=== PATIENT | male | born 1980 | race Caucasian/White ===

== ENCOUNTER 2019-12-17 23:17 | Emergency (ER) | payer MEDICAID ==
[~2019-12-17] VITALS: Ht 182.9 cm; Wt 136.1 kg
--- NOTE | 2019-12-17 23:47 | NUR ---
PATIENT CAME TO ER BED 9 C/O NON-RADIATING LEFT SIDED CHEST PAIN THAT HAS BEEN ONGOING FOR 2 WEEKS. PATIENT EXPRESSES THAT IT WAS UNBEARABLE WHICH IS WHAT LED HIM TO COME TO THE ER. PATIENT STATES THAT HE WAS HAVING SOME HEADACHE AND HIGH BLOOD PRESSURE. PATIENT DOES NOT TAKE BLOOD PRESSURE MEDICATION. PATIENT IS A/OX4. NO SOB. BREATHING EVENLY AND UNLABORED ON ROOM AIR. CONNECTED TO CLINICAL OFFICE TECHNICIAN
[2019-12-17 23:59] LABS: BASOPHILS % (AUTO) 0.5 % (0.0-2.0); EOSINOPHILS % (AUTO) 2.5 % (0.0-6.0); HEMATOCRIT 46 % (39-51); HEMOGLOBIN 16.1 g/dL (13.5-17.5); LYMPHOCYTES # (AUTO) 2.6 /CMM (0.8-4.8); LYMPHOCYTES % (AUTO) 29.2 % (20.0-44.0); MEAN CORPUSCULAR HGB CONC 35 g/dl (31.0-36.0); MEAN CORPUSCULAR VOLUME 88 fL (80-96); MONOCYTES # (AUTO) 0.7 /CMM (0.1-1.30); MONOCYTES % (AUTO) 7.7 % (2.0-12.0); NEUTROPHILS # (AUTO) 5.4 /CMM (1.8-8.9); NEUTROPHILS % (AUTO) 60.1 % (43.0-81.0); PLATELET COUNT (AUTO) 161 /CMM (150-450); RED BLOOD CELL COUNT(AUTO) 5.19 MIL/uL (4.5-6.0)
[2019-12-18 00:17] LABS: ALANINE AMINOTRANSFERASE 63 U/L (12-78); ALBUMIN 4.1 g/dL (3.4-5.0); ALKALINE PHOSPHATASE 101 U/L (46-116); ASPARTATE AMINOTRANSFERASE 24 U/L (15-37); B-TYPE NATRIURETIC PEPTIDE 46 PG/ML (0-125); BILIRUBIN,DIRECT 0.1 mg/dL (0.0-0.2); BILIRUBIN,TOTAL 0.5 mg/dL (0.2-1.0); CALCIUM, SERUM 9.2 mg/dL (8.5-10.1); CARBON DIOXIDE 30 mmol/L (21-32); CHLORIDE 101 mmol/L (98-107); CREATININE 0.9 mg/dL (0.6-1.3); GLUCOSE 253 mg/dL (74-106); POTASSIUM 4.1 mmol/L (3.5-5.1); SODIUM SERUM 134 mmol/L (136-145); UREA NITROGEN, BLOOD 15 mg/dL (7-18)
[2019-12-18] MEDS ORDERED: HYDROCODONE/APAP 5/325MG TABLET ONE (00:23)
[2019-12-18] MEDS ORDERED: ASPIRIN 81 MG TAB.CHEW ONE (00:24)
[2019-12-18] MEDS ORDERED: NITROGLYCERIN 0.4 MG/TAB BOTTLE ONE (00:24)
[2019-12-18] MEDS: NITROGLYCERIN 0.4 MG/TAB BOTTLE SL ONE (00:30)
[2019-12-18] MEDS ORDERED: NITROGLYCERIN PACKET 1 GM PACKET ONE (00:32)
[2019-12-18] MEDS: HYDROCODONE/APAP 5/325MG TABLET PO ONE (00:33)
[2019-12-18] MEDS: ASPIRIN 81 MG TAB.CHEW PO ONE (00:33)
--- NOTE | 2019-12-18 00:33 | NUR ---
MD ORDERED NITROGLYCERIN PATCH WITH NITROGLYCERIN SUBLINGUAL TABLETS GIVEN TOGETHER.
[2019-12-18] MEDS: NITROGLYCERIN PACKET 1 GM PACKET TD ONE (00:39)
--- NOTE | 2019-12-18 03:20 | NUR ---
PATIENT IS SLEEPING. EASILY AROUSABLE THROUGH VERBAL AND TACTILE STIMULI. CONNECTED TO THE ROTARY HELPER. BREATHING EVENLY AND UNLABORED ON ROOM AIR. AT BEDSIDE. CALL LIGHT WITHIN REACH.
--- NOTE | 2019-12-18 03:42 | NUR ---
IV removed. Catheter intact and site benign. Pressure and 4x4 applied to site. No bleeding noted.
[2019-12-18 03:43] VITALS: BP 136/73
--- NOTE | 2019-12-18 03:43 | NUR ---
PATIENT PRESCIBED WITH CLONIDINE. VERBALIZES UNDERSTANDING OF MEDICATION.
--- NOTE | 2019-12-18 03:43 | NUR ---
Patient discharged to home in stable condition. Written and verbal after care instructions given. Patient verbalizes understanding of instruction.
== END 2019-12-18 03:45 | disposition home or self-care (01) ==
LOC: ER 23:17
DX: R07.89 Other chest pain (principal); I10 Essential (primary) hypertension; R73.9 Hyperglycemia, unspecified
CPT/HCPCS: 36415; 71045-TC; 80048-TC; 80076-TC; 83880; 84484-TC; 85025-TC